=== PATIENT | female | born 1970 | race Caucasian/White ===

== ENCOUNTER 2021-01-23 17:29 | Emergency (ER) | payer OTHER, SELFPAY ==
[2021-01-23 17:34] VITALS: BP 180/85; PULSE 69; RESP 14; TEMP 36.6; O2SAT 99; BMI 23.6
--- NOTE | 2021-01-23 17:39 | DI.RAD.S_ITS ---
PROCEDURE: XR FOOT RT MIN 3V INDICATIONS: tripped,now having right foot pain TECHNIQUE: 3 views of the foot were acquired. COMPARISON: None. FINDINGS: Bones: No acute fractures or dislocations. Tiny plantar calcaneal enthesophyte. No suspicious bony lesions. Soft tissues: No tibiotalar joint effusion. Achilles tendon appears normal. IMPRESSION: Right foot without acute fracture or dislocation. Tiny plantar calcaneal enthesopathy. If there is persistent clinical concern for occult fracture given adequate mechanism of injury, consider repeat imaging in 10-14 days. Dictated by: Aaron Olson M.D. on 01/23/2021 at 18:43 Approved by: Aaron Olson M.D. on 01/23/2021 at 18:50
--- NOTE | 2021-01-23 17:45 | ED.LOWEXIN ---
HPI - Extremity Injury (Lower) <DO Cleo Bardales Last Filed: 01/24/21 07:17> General Chief Complaint: Extremity Injury, Lower Stated Complaint: fall, right side ankle pain Time Seen by Provider: 01/23/21 17:32 Source: patient Mode of arrival: Wheelchair Limitations: no limitations History of Present Illness HPI Narrative: Patient is a 50-year-old female who presents with right foot pain ongoing for last 3-4 hours. She states that she was showing house [place] when she tripped. She has not been able to bear weight since. No numbness or tingling. complaint: foot injury Related Data Home Medications Medication Instructions Recorded Confirmed Estriol 1 gram VAGINAL .hs 06/12/19 06/12/19 Allergies Allergy/AdvReac Type Severity Reaction Status Date / Time Penicillins Allergy Unknown Verified 01/23/21 17:39 Opioids - Morphine Analogues AdvReac Mild N/V Verified 01/23/21 17:39 Review of Systems <DO Cleo Bardales Last Filed: 01/24/21 07:17> Review of Systems Narrative: GENERAL: Denies chills,fever HEENT: Denies throat pain RESPIRATORY: Denies dyspnea, cough, wheezing CARDIOVASCULAR: Denies chest pain, palpitations GASTROINTESTINAL: Denies nausea, vomiting MUSCULOSKELETAL: See HPI SKIN: No rash, no laceration, no pruritus NEUROLOGIC: Denies weakness, dizziness, headache, numbness 8 point review of systems is negative except for those stated above and HPI Patient History <DO Cleo Bardales Last Filed: 01/24/21 07:17> Medical History Chicken pox (~1981) Chronic back pain (~2010) Endometriosis (~2012) Fibroids (~2011) Frequent UTI Genetic carrier Pelvic floor dysfunction Surgical History Anesthesia History of section History of hysterectomy (~2012) History of surgery S/P Botox injection Status post partial colectomy (~2013) Status post phlebectomy Family History Mother Parathyroid disease Grandmother Cancer Social History Smoking Status: Never smoker Smoking Status: Never smoker alcohol intake frequency: holidays/special occasions only Substance Use Type: does not use Exam <Corazon Apodaca DO - Last Filed: 01/24/21 07:17> Initial Vital Signs Initial Vital Signs: Vital Signs Temperature 98 F 01/23/21 17:34 Pulse Rate 69 01/23/21 17:34 Respiratory Rate 14 01/23/21 17:34 Blood Pressure 180/85 H 01/23/21 17:34 Pulse Oximetry 99 01/23/21 17:34 GENERAL: Well-appearing, well-nourished and in no acute distress. CARDIOVASCULAR: peripheral pulses in tact, cap refill <2 sec RESPIRATORY: No respiratory distress, speaks in full sentences without difficulty EXTREMITIES: Normal range of motion, no clubbing or edema. Neurovascularly intact Right midfoot slight lateral swelling no pain along the 5th little toe ankles within normal limits Achilles tendon intact. Distal pedal pulse intact NEUROLOGICAL: Cranial nerves II through XII grossly intact. Normal gait and speech. SKIN: Warm, dry, no petechiae, no rashes or lesions. <Marina Deleon DO - Last Filed: 01/24/21 05:18> Initial Vital Signs Initial Vital Signs: Vital Signs Temperature 98 F 01/23/21 17:34 Pulse Rate 69 01/23/21 17:34 Respiratory Rate 14 01/23/21 17:34 Blood Pressure 180/85 H 01/23/21 17:34 Pulse Oximetry 99 01/23/21 17:34 Course <Corazon Apodaca DO - Last Filed: 01/24/21 07:17> Orders Ordered: ED Orders 01/23/21 17:39 XR foot RT min 3V Stat Vital Signs Vital signs: Vital Signs - 8 hr 01/23/21 17:34 Temperature 98 F Pulse Rate 69 Respiratory Rate 14 Blood Pressure 180/85 H Pulse Oximetry 99 <Marina Deleon DO - Last Filed: 01/24/21 05:18> Orders Ordered: ED Orders 01/23/21 17:39 XR foot RT min 3V Stat Reevaluation(s) Reevaluation #1: Patient signed out to myself by Dr. Apodaca. Patient states that she was [place] and rolled her right foot/ankle. She has over the dorsum of the foot at the 4th metatarsal with some ecchymosis. And tenderness specifically in that area. Patient has pain with weight-bearing. Initial x-ray is negative for fracture or obvious change. Plan for ortho shoe, weight-bearing as tolerated with crutches. NSAIDs as needed. And RICE. All questions were answered. Time: 19:22 Vital Signs Vital signs: Vital Signs - 8 hr 01/23/21 17:34 Temperature 98 F Pulse Rate 69 Respiratory Rate 14 Blood Pressure 180/85 H Pulse Oximetry 99 MDM - Extremity Injury (Lower) <Corazon Apodaca, DO - Last Filed: 01/24/21 07:17> MDM Narrative Medical decision making narrative: Signed out to Dr. Deleon x-ray pending <Marina Deleon, - Last Filed: 01/24/21 05:18> Imaging Data Extremity x-ray #1: Radiologist's Impression: [address] [id number] ReportSigned Patient: Chloe Javed#: [id number]: 1970Acct:[id number]/Sex: 50 / FDate of Service: 01/23/21Loc: EDAccession Number: [id number] Procedure: XR foot RT min 3V Ordering Provider: Corazon Apodaca D.O. PROCEDURE: XR FOOT RT MIN 3V INDICATIONS: tripped,now having right foot pain TECHNIQUE: 3 views of the foot were acquired. COMPARISON: None. FINDINGS: Bones: No acute fractures or dislocations. Tiny plantar calcaneal enthesophyte. No suspicious bony lesions. Soft tissues: No tibiotalar joint effusion. Achilles tendon appears normal. IMPRESSION: Right foot without acute fracture or dislocation. Tiny plantar calcaneal enthesopathy. If there is persistent clinical concern for occult fracture given adequate mechanism of injury, consider repeat imaging in 10-14 days. Dictated by: Aaron Olson M.D. on 01/23/2021 at 18:43 Approved by: Aaron Olson M.D. on 01/23/2021 at 18:50 Discharge Plan Departure Patient Disposition: Home Clinical Impression: Right foot strain, Contusion of foot Instructions: DI for Foot Sprain Activity Restrictions/Additional Instructions: Follow-up in 7-10 days if you are not having any improvement of symptoms. There is always the possibility of a small or occult fracture that is not initially visualized. Her having continued symptoms your physician may wish to repeat films in 7-10 days. You may continue ibuprofen up to 600 mg every 6 hours as needed for pain. You may also take Tylenol up to a 1000 mg every 8 hours as needed for pain. Weight bear as tolerated. Splint Care: Keep splint clean and dry. Elevated affected body part to decrease swelling. OK to use ice pack on the affected body part. Use for 15-20 minutes each time, for 5-6x per day. If you develop worsening pain, numbness, tingling, discoloration of the affected body part, readjust the orthoshoe, and either see your doctor for an urgent re-assessment, or return to the Emergency Department. Return to the Emergency Department for any new or worsening symptoms. Prescriptions: No Action Estriol cream 1 gram vaginal .hs RF: 0 Referrals: Genny Worthington MD [Primary Care Provider] -
== END 2021-01-23 19:30 | disposition home or self-care (01) ==
PROVIDERS: Emergency Provider Emergency Medicine; Family Provider Urology; PCP Family Medicine; Referring Provider Family Medicine
DX: S93.601A Unspecified sprain of right foot, initial encounter (principal); S90.31XA Contusion of right foot, initial encounter; W01.0XXA Fall on same level from slipping, tripping and stumbling without subsequent striking against object, initial encounter
CPT/HCPCS: 73630; 99281; 99283

== ENCOUNTER → 2021-10-08 08:27 | Outpatient (CLI) | payer OTHER, SELFPAY ==
[2021-10-08 22:04] LABS: COVID19 - ORCAS (NP or Nasal) Negative (Negative)
== END ==
PROVIDERS: Family Provider Urology; PCP Family Medicine; Visit Provider Physician Assistant Medical
DX: U07.1 COVID-19 (principal)
CPT/HCPCS: U0003

== ENCOUNTER → 2021-11-12 14:24 | Outpatient (CLI) | payer OTHER, SELFPAY ==
[2021-11-12 14:56] LABS: COVID19 -Nasal RAPID Negative (Negative)
== END ==
PROVIDERS: Family Provider Urology; PCP Family Medicine; Visit Provider Physician Assistant
DX: R51.9 Headache, unspecified (principal); R09.81 Nasal congestion
CPT/HCPCS: 87635